=== PATIENT | male | born 1985 | race Caucasian/White ===

== ENCOUNTER 2021-02-05 09:10 | Emergency (ER) | payer OTHER ==
[~2021-02-05 09:10] MED LIST: NAPROXEN500 MG PO
[2021-02-05 09:44] LABS: BASOPHIL 0.8 % (0-2); EOSINOPHIL 2.4 % (0-5); HCT 43.4 % (42.0-52.0); HGB 14.9 g/dl (13.2-18.0); LYMPHOCYTE 27.3 % (15-48); MCH 28.7 pg (25.0-31.0); MCHC 34.3 g/dL (32.0-36.0); MCV 83.6 fL (78.0-100.0); MONOCYTE 5.3 % (0-12); MPV 10.1 fL (6.0-9.5); NEUTROPHIL 63.9 % (41-80); NRBC 0; PLT 242 K/uL (150-400); RBC 5.19 M/uL (4.70-6.00); RDW 12.4 % (11.5-14.0); WBC 6.6 K/uL (4.0-10.5)
[2021-02-05 10:09] LABS: BILIRUBIN NEGATIVE (NEGATIVE); BLOOD 2+ Ery/uL (NEGATIVE); CLARITY CLEAR (CLEAR); COLOR YELLOW (YELLOW); GLUCOSE (U) NORMAL (NORMAL); LEUKOCYTES TRACE Leu/uL (NEGATIVE); NITRITE NEGATIVE (NEGATIVE); PROTEIN NEGATIVE (NEGATIVE); SPECIFIC GRAVITY >=1.030 (1.001-1.030); UROBILINOGEN 0.2 mg/dL (0.2-1.0)
[2021-02-05 10:16] LABS: BACTERIA TRACE; MUCOUS MODERATE; URINARY WBC RARE
[2021-02-05 10:25] LABS: ALBUMIN 4.5 g/dL (3.4-5.0); BILIRUBIN - TOTAL 0.4 mg/dL (0.2-1.0); BUN/CREAT RATIO (CALC) 7.2 RATIO; CREATININE 0.97 mg/dL (0.67-1.17); GLOBULIN (CALCULATION) 3.3 g/dL; POTASSIUM 3.7 mmol/L (3.5-5.1); TOTAL PROTEIN 7.8 g/dL (6.4-8.2)
[2021-02-05] MEDS ORDERED: FLOMAX0.4 MG PO (12:55)
== END 2021-02-05 13:01 | disposition home or self-care (01) ==
LOC: FER 09:10
PROVIDERS: Emergency Medicine
DX: N20.1 Calculus of ureter (principal); N40.0 Benign prostatic hyperplasia without lower urinary tract symptoms
CPT/HCPCS: 36415; 80053; 81001; 85025; J2270; J2405